=== PATIENT | female | born 1960 | race African-American/Black ===

== ENCOUNTER 2021-04-08 12:15 | Emergency (ER) | payer MEDICARE, OTHER ==
[~2021-04-08] VITALS: Ht 167.6 cm; Wt 100.0 kg
[2021-04-08] MEDS ORDERED: SODIUM CHLORIDE 0.9% 1,000 ML IV ONE (12:30)
[2021-04-08] MEDS ORDERED: MORPHINE SULFATE 4 MG/ML CPJ (NOT FOR IM USE) IV STA (12:30)
[2021-04-08] MEDS ORDERED: ONDANSETRON HCL 4MG/2ML INJ IV STA (12:30)
[2021-04-08 13:08] LABS: EOSINOPHILS % 0.2 % (0.0-5.0); HEMATOCRIT. 43.2 % (36.0-48.0); HEMOGLOBIN. 14.4 g/dL (12.0-16.0); MEAN CORPUSCULAR HEMOGLOBIN 27.5 pg (28.0-32.0); MEAN CORPUSCULAR VOLUME 82.6 fL (81.0-99.0); MONOCYTES % 8.9 % (2.0-8.0); NEUTROPHILS % 69.9 % (40.0-76.0); RED BLOOD CELL COUNT 5.23 mill/uL (4.2-5.4); RED CELL DISTRIBUTION WIDTH 15.7 % (11.6-14.6)
[2021-04-08 13:15] LABS: CHLORIDE 99 mEq/L (98-107)
[2021-04-08 13:17] LABS: INR 1.2; PROTHROMBIN TIME 12.4 sec (9.6-11.0)
[2021-04-08 13:18] LABS: ETHANOL BLOOD < 10 mg/dL
[2021-04-08 15:00] LABS: CLARITY URINE CLEAR (CLEAR); COLOR URINE YELLOW (YELLOW); KETONES URINE 4+ (NEGATIVE); LEUKOCYTE ESTERASE URINE TRACE (NEGATIVE); NITRITE URINE NEGATIVE (NEGATIVE); OCCULT BLOOD URINE NEGATIVE (NEGATIVE); PH URINE 5.5 (4.5-8.0); PROTEIN URINE 1+ (NEGATIVE); SPECIFIC GRAVITY URINE 1.026 (1.005-1.030); UROBILINOGEN URINE 0.2 E.U./dL (0.2-1.0)
[2021-04-08 15:23] LABS: *COCAINE SCREEN URINE NEGATIVE (NEGATIVE); METHADONE URINE SCREEN NEGATIVE (NEGATIVE); OPIATES URINE SCREEN PRESUMTIVE POSITIVE (NEGATIVE)
[2021-04-08 15:24] LABS: *AMPHETAMINES SCREEN URINE NEGATIVE (NEGATIVE); *BARBITURATES SCREEN URINE NEGATIVE (NEGATIVE); *BENZODIAZEPINES SCREEN URINE NEGATIVE (NEGATIVE); CANNABINOID URINE SCREEN PRESUMTIVE POSITIVE (NEGATIVE); PHENCYCLIDINE URINE SCREEN NEGATIVE (NEGATIVE)
[2021-04-08 15:47] LABS: PLATELET 187 x1000/uL (130-400)
[2021-04-08] MEDS ORDERED: OMEP20CA14 MT (16:06)
[2021-04-08] MEDS ORDERED: ONDA4TAB5 MT (16:06)
[2021-04-08] MEDS ORDERED: HYDR-4346 MT (16:06)
[2021-04-08 16:37] VITALS: BP 152/78
== END 2021-04-08 16:49 | disposition home or self-care (01) ==
LOC: EDSEX 12:15 → ER 12:15
DX: R10.9 Unspecified abdominal pain (principal); R11.10 Vomiting, unspecified; E11.65 Type 2 diabetes mellitus with hyperglycemia; M54.30 Sciatica, unspecified side; R94.5 Abnormal results of liver function studies; Z90.710 Acquired absence of both cervix and uterus
CPT/HCPCS: 36415; 71045; 74176; 76705; 80053; 80305; 80320; 81003; 83690; 84484; 85025; 85610; 93005; 96361; 96374; 96375; 99285; J2270; J2405; J7030; G0480

== ENCOUNTER 2022-05-27 11:26 | Emergency (ER) | payer MEDICARE, OTHER ==
[~2022-05-27] VITALS: Ht 160 cm; Wt 77.0 kg
[~2022-05-27 11:26] MED LIST: HYDR-4346 MT; OMEP20CA14 MT; ONDA4TAB5 MT
[2022-05-27] MEDS ORDERED: HYDROCODONE/ACETAMINOPHEN 5/325MG TABLET PO ONE (13:00)
[2022-05-27 13:56] VITALS: BP 124/76
[2022-05-27] MEDS ORDERED: ACET-2708 MT (17:32)
[2022-05-27] MEDS ORDERED: LIDO1ADH23 TP (17:32)
== END 2022-05-27 17:42 | disposition home or self-care (01) ==
LOC: ER 11:26
DX: S39.012A Strain of muscle, fascia and tendon of lower back, initial encounter (principal); S16.1XXA Strain of muscle, fascia and tendon at neck level, initial encounter; V49.49XA Driver injured in collision with other motor vehicles in traffic accident, initial encounter; Y93.89 Activity, other specified; Y92.89 Other specified places as the place of occurrence of the external cause; Y99.8 Other external cause status; E11.9 Type 2 diabetes mellitus without complications; I10 Essential (primary) hypertension; Z90.710 Acquired absence of both cervix and uterus; Z79.899 Other long term (current) drug therapy
CPT/HCPCS: 72100; 99283

== ENCOUNTER 2024-04-30 05:04 | Emergency (ER) | payer OTHER, MEDICAID ==
[~2024-04-30] VITALS: Ht 162.6 cm; Wt 75.0 kg
[~2024-04-30 05:04] MED LIST changes: +ACET-2708 MT; +LIDO1ADH23 TP
[2024-04-30 05:08] VITALS: O2SAT 98
[2024-04-30] MEDS: MORPHINE SULFATE 4 MG/ML INJ (FOR IV/IM USE) IV STA (05:41)
[2024-04-30 05:42] LABS: HEMATOCRIT. 44.7 % (36.0-48.0); HEMOGLOBIN. 14.5 g/dL (12.0-16.0); MEAN CORPUSCULAR HEMOGLOBIN 27.7 pg (28.0-32.0); MEAN CORPUSCULAR HGB CONC 32.5 g/dL (31.0-37.0); MEAN CORPUSCULAR VOLUME 85.2 fL (81.0-99.0); MEAN PLATELET VOLUME 12.2 fl (7.4-10.4); PLATELET 205 x1000/uL (130-400); RED BLOOD CELL COUNT 5.25 mill/uL (4.2-5.4); RED CELL DISTRIBUTION WIDTH 14.1 % (11.6-14.6); WHITE BLOOD COUNT 13.8 x1000/uL (4.5-11.0)
[2024-04-30] MEDS: SODIUM CHLORIDE 0.9% 1,000 ML IV ONE (05:42)
[2024-04-30] MEDS: ONDANSETRON HCL 4MG/2ML INJ IV STA (05:42)
[2024-04-30 05:50] LABS: DIFFERENTIAL COMMENT 1
[2024-04-30 05:52] LABS: PROTHROMBIN TIME 11.1 sec (9.6-11.0)
[2024-04-30 06:04] LABS: ATYPICAL LYMPHOCYTES 1; PLATELET ESTIMATE NORMAL; TEAR DROP CELLS 3+
[2024-04-30 06:05] LABS: GIANT PLATELETS 1+; OVALOCYTES 1+; TOXIC VACUOLATION 1+
[2024-04-30 07:08] LABS: CHLORIDE 104 mEq/L (98-107); POTASSIUM 3.7 mEq/L (3.5-5.1); SODIUM 140 mEq/L (136-145)
[2024-04-30 07:09] LABS: CALCIUM 10.3 mg/dL (8.7-10.4); CARBON DIOXIDE 22 mEq/L (21-32)
[2024-04-30 07:14] LABS: GLUCOSE 195 mg/dL (70-105); UREA NITROGEN BLOOD 13 mg/dL (9-23)
[2024-04-30 07:16] LABS: ALANINE AMINOTRANSFERASE 18 IU/L (10-49); ASPARTATE AMINOTRANSFERASE 25 IU/L (<34); BILIRUBIN DIRECT 0.2 mg/dL (<=3.0)
[2024-04-30 07:17] LABS: BILIRUBIN TOTAL 0.9 mg/dL (0.1-1.0); PROTEIN TOTAL 8.5 g/dL (6.0-8.3)
[2024-04-30 07:42] LABS: CLARITY URINE CLEAR (CLEAR); COLOR URINE YELLOW (YELLOW); GLUCOSE URINE 3+ (NEGATIVE); KETONES URINE 1+ (NEGATIVE); LEUKOCYTE ESTERASE URINE NEGATIVE (NEGATIVE); NITRITE URINE NEGATIVE (NEGATIVE); OCCULT BLOOD URINE NEGATIVE (NEGATIVE); PH URINE 6.5 (4.5-8.0); PROTEIN URINE 1+ (NEGATIVE); SPECIFIC GRAVITY URINE 1.022 (1.005-1.030); UROBILINOGEN URINE 0.2 E.U./dL (0.2-1.0)
[2024-04-30] MEDS: MORPHINE SULFATE 4 MG/ML INJ (FOR IV/IM USE) IV ONE (09:15)
[2024-04-30 09:27] LABS: SQUAMOUS EPITHELIAL CELL URINE RARE /lpf (RARE/1+)
[2024-04-30 09:28] LABS: BACTERIA URINE TRACE; WBC URINE 0-2 /hpf (0-2)
[2024-04-30 09:30] LABS: RBC URINE NONE SEEN /hpf (0-2)
[2024-04-30 11:18] VITALS: BP 145/68; PULSE 101; RESP 20; TEMP 98.7
== END 2024-04-30 11:43 | disposition short-term general hospital (02) ==
LOC: ER 05:04 → EDBEDREQ 09:44 → EDBEDREQTM 09:44 → ER 11:43 → CANBEDREQ 05-01 22:39
DX: R10.9 Unspecified abdominal pain (principal); E11.9 Type 2 diabetes mellitus without complications; I10 Essential (primary) hypertension; Z90.710 Acquired absence of both cervix and uterus
CPT/HCPCS: 99285; 74176; 96374; 96375; 80076; 80048; 81003; 83690; 85025; 85610; 36415; 93005; 96376; J2405; J2270; J7030